=== PATIENT | female | born 1985 | race American Indian/Alaskan Native ===

== ENCOUNTER 2021-08-26 00:10 | Emergency (ER) | payer SELFPAY ==
--- NOTE | 2021-08-26 02:03 | XRay Report ---
Left foot, 3 views HISTORY: Pain after injury COMPARISON: None FINDINGS: No acute fracture or malalignment. Lisfranc interval is preserved. No significant arthritis . There is soft tissue swelling of the dorsum of the forefoot. Signer Name: Vel Olivarez MD Signed: 08/26/2021 1:59 AM Workstation Name: [id number]
[2021-08-26] MEDS ORDERED: ACETAMINOPHEN 500 MG TAB PO ONE (04:20)
--- NOTE | 2021-08-26 05:16 | Emergency Department Report ---
ED Lower Extremity HPI - General Chief Complaint: Extremity Injury, Lower Stated Complaint: LEFT FOOT INJURY Source: patient Mode of arrival: Ambulatory Limitations: No Limitations - History of Present Illness Initial Comments: Patient is a 36-year-old female with no past medical history who presents to the ED with complaint of acute onset dorsal left foot pain with small puncture wound after a sharp object fell on her left foot about 1 week ago. Patient states that the pain has been constant and persistent and that the swelling is also worsened. Patient states that the wound has been draining thick purulent discharge for the last 2 days. Patient denies dizziness, syncope, fever, chills, nausea and vomiting, numbness and tingling or weakness of lower extremities bilaterally. MD Complaint: foot injury (dorsal left foot pain, small puncture wound), other (popen wound on dorsal left foot) -: Sudden, week(s) Injury: Foot: Left (dorsal left foot pain, small puncture wound) Type of Injury: blunt, laceration Place: street/outdoors Severity: moderate Severity scale (0 -10): 6 Improves With: nothing Worsens With: weight bearing, movement, palpation Context: direct blow (sharp metallic object dropped on dorsal left foot) Associated Symptoms: swelling, able to partially bear weight. denies: numbness, tingling, unable to bear weight - Related Data Previous Rx's Medication Instructions Recorded Last Taken Type Ibuprofen [Motrin] 800 mg PO Q8HR PRN #30 tablet 08/26/21 Unknown Rx Sulfamethoxazole/Trimethoprim 1 each PO Q12H #20 tab 08/26/21 Unknown Rx [Bactrim DS TAB] Allergies Allergy/AdvReac Type Severity Reaction Status Date / Time No Known Allergies Allergy Unverified 08/26/21 01:28 ED Review of Systems ROS: Stated complaint: LEFT FOOT INJURY Other details as noted in HPI Constitutional: denies: chills, fever Eyes: denies: eye pain, eye discharge, vision change ENT: denies: ear pain, throat pain Respiratory: denies: cough, shortness of breath, wheezing Cardiovascular: denies: chest pain, palpitations Endocrine: no symptoms reported Gastrointestinal: denies: abdominal pain, nausea, diarrhea Genitourinary: denies: urgency, dysuria, discharge Musculoskeletal: arthralgia (dorsal left foot pain, swelling and open puncture wound with discharge), myalgia. denies: back pain, joint swelling Skin: other (small puncture wounds on dorsal left foot with purulent discharge). denies: rash, lesions Neurological: denies: headache, weakness, paresthesias Psychiatric: denies: anxiety, depression Hematological/Lymphatic: denies: easy bleeding, easy bruising ED Past Medical Hx - Medications Home Medications: Home Medications Medication Instructions Recorded Confirmed Last Taken Type Ibuprofen [Motrin] 800 mg PO Q8HR PRN #30 tablet 08/26/21 Unknown Rx Sulfamethoxazole/Trimethoprim 1 each PO Q12H #20 tab 08/26/21 Unknown Rx [Bactrim DS TAB] ED Physical Exam - General Limitations: No Limitations General appearance: alert, in no apparent distress - Head Head exam: Present: atraumatic, normocephalic, normal inspection - Eye Eye exam: Present: normal appearance, PERRL, EOMI Pupils: Present: normal accommodation - ENT ENT exam: Present: normal exam, normal orophraynx, mucous membranes moist, TM's normal bilaterally, normal external ear exam - Neck Neck exam: Present: normal inspection, full ROM. Absent: tenderness - Respiratory Respiratory exam: Present: normal lung sounds bilaterally. Absent: respiratory distress, wheezes, rales, rhonchi, chest wall tenderness, accessory muscle use, decreased breath sounds, prolonged expiratory - Cardiovascular Cardiovascular Exam: Present: regular rate, normal rhythm, normal heart sounds. Absent: systolic murmur, diastolic murmur, rubs, gallop - GI/Abdominal GI/Abdominal exam: Present: soft, normal bowel sounds. Absent: tenderness, guarding, rebound, hyperactive bowel sounds, hypoactive bowel sounds, organomegaly - Extremities Exam Extremities exam: Present: normal inspection, full ROM, tenderness (Palpable dorsal left foot tenderness due to a small puncture wounds), normal capillary refill. Absent: pedal edema, joint swelling, calf tenderness - Back Exam Back exam: Present: normal inspection, full ROM. Absent: tenderness, CVA tenderness (R), CVA tenderness (L), muscle spasm, paraspinal tenderness, vertebral tenderness - Neurological Exam Neurological exam: Present: alert, oriented X3, CN II-XII intact, normal gait, reflexes normal - Psychiatric Psychiatric exam: Present: normal affect, normal mood - Skin Skin exam: Present: warm, dry, intact, normal color, abrasion (small puncture wound on dorsal left foot with purulent discharge and localized tenderness). Absent: rash ED Lower Extremity MDM - Radiology Data Radiology results: report reviewed, image reviewed [facility] [address] [place] [address] XRay Report Signed Patient: TRI LECHUGA MR#: [id number] 09 : 1985 Acct:[id number] Age/Sex: 36 / F ADM Date: 08/26/21 Loc: ED Attending Dr: Ordering Physician: VY STEWART MD Date of Service: 08/26/21 Procedure(s): XR foot 3+V LT Accession Number(s): [id number] cc: VY STEWART MD Fluoro Time In Minutes: Left foot, 3 views HISTORY: Pain after injury COMPARISON: None FINDINGS: No acute fracture or malalignment. Lisfranc interval is preserved. No significant arthritis. There is soft tissue swelling of the dorsum of the forefoot. Signer Name: Rafiq Olivarez MD Signed: 08/26/2021 1:59 AM Workstation Name: [id number] Transcribed By: JS Dictated By: RAFIQ OLIVAREZ MD Electronically Authenticated By: RAFIQ OLIVAREZ MD Signed Date/Time: 08/26/21158 DD/ 7 TD/TT: - Medical Decision Making This is a 36-year-old female with no past medical history who presents to the ED with complaint of acute onset dorsal left foot pain with small puncture wound after a sharp object fell on her left foot about 1 week ago. Patient states sharon t the pain has been constant and persistent and that the swelling is also worsened. Patient states that the wound has been draining thick purulent discharge for the last 2 days. In the ED, patient is alert and oriented x3 and is not in any distress. Patient was treated for pain in the ED. The wound was cleaned extensively with normal saline and dressed appropriately. Patient was discharged home on pain medication and antibiotics and advised to follow-up with her primary care physician in 7 to 10 days for reevaluation or return to the ED immediately if symptoms get worse. - Differential Diagnosis puncture wound; muscle strain; foot contusion; foot fracture; cellulitis Critical care attestation.: If time is entered above; I have spent that time in minutes in the direct care of this critically ill patient, excluding procedure time. ED Disposition Clinical Impression: Cellulitis of left foot Contusion of left foot including toes Qualifiers: Encounter type: initial encounter Qualified Code(s): S90.32XA - Contusion of left foot, initial encounter; S90.122A - Contusion of left lesser toe(s) without damage to nail, initial encounter Disposition: HOME / SELF CARE / HOMELESS Is pt being admited?: No Does the pt Need Aspirin: No Condition: Stable Instructions: Foot Contusion, [id number], Cellulitis, Adult, [id number], Crush Injury of the Foot, [id number] Additional Instructions: The left foot x-ray showed no acute fractures or subluxations. Your left foot also shows some localized infection on the small puncture wound on the dorsal left foot. Therefore take medications with food, clean the wound with water and soap as needed and follow-up with your primary care physician in 7 to 10 days for reevaluation. Return to the ED immediately if symptoms get worse. Prescriptions: Sulfamethoxazole/Trimethoprim [Bactrim DS TAB] 1 each PO Q12H #20 tab Ibuprofen [Motrin] 800 mg PO Q8HR PRN #30 tablet PRN Reason: Pain , Severe (7-10) Referrals: [facility] [Provider Group] - 7-10 days Time of Disposition: 05:21 Print Language: [place]
[2021-08-26] MEDS: IBUPROFEN 600 MG TAB PO ONE (05:24)
[2021-08-26 06:55] VITALS: BP 113/83
== END 2021-08-26 06:55 | disposition home or self-care (01) ==
LOC: ED 00:10
DX: S90.32XA Contusion of left foot, initial encounter (principal); S90.122A Contusion of left lesser toe(s) without damage to nail, initial encounter; X58.XXXA Exposure to other specified factors, initial encounter; Y93.89 Activity, other specified; Y92.89 Other specified places as the place of occurrence of the external cause; Y99.8 Other external cause status; L03.116 Cellulitis of left lower limb
CPT/HCPCS: 99283